=== PATIENT | female | born 1960 | race Caucasian/White ===

== ENCOUNTER 2017-10-05 15:50 | Emergency (ER) | payer BC ==
--- NOTE | 2017-10-05 16:20 | CPEKG ---
Heart Rate: 75 RR Interval: 800 P-R Interval: 152 QRSD Interval: 88 QT Interval: 416 QTC Interval: 465 P Thompson: 55 QRS Thompson: 36 T Wave Thompson: 52 EKG Severity - NORMAL ECG - EKG Impression: SINUS RHYTHM Electronically Signed By: Nela Bernard 06-Oct-2017 22:26:21
--- NOTE | 2017-10-05 17:14 | EDPHY ---
H & P Stated Complaint: chest pain for a few days, felt forgetfull today and could not type well Time Seen by Provider: 10/05/17 17:10 HPI/ROS: CHIEF COMPLAINT: Multiple complaints including chest pain and intermittent clumsiness of her left hand HISTORY OF PRESENT ILLNESS: The patient presents the ED with complaints of chronic chest pain for several months. Today she had some intermittent clumsiness of her left hand. She reports this is a chronic intermittent condition. She reports she was diagnosed with a old stroke on a MRI of her brain recently. She has been diagnosed with a small DVT in her upper extremity. The patient did see applicator sprayer who recommended that she consider anti-platelet agents. She is also under the care of a neurologist who has recommended anticoagulation. The patient did have an outpatient MRA of her neck which demonstrated no evidence of significant stenosis or dissection. The patient has a history of hospitalization for severe migraine headache. She was having a migraine headache earlier today. The patient denies any history of exertional chest pain. She denies fever, cough or congestion. She denies additional acute complaints. REVIEW OF SYSTEMS: A comprehensive 10 point review of systems is otherwise negative aside from elements mentioned in the history of present illness. Source: Patient - Personal History Current Tetanus Diphtheria and Acellular Pertussis (TDAP): Yes Tetanus Vaccine Date: 2012 - Medical/Surgical History Hx Asthma: Yes Hx Chronic Respiratory Disease: Yes Hx Diabetes: Yes Hx Cardiac Disease: No Hx Renal Disease: Yes Hx Cirrhosis: No Hx Alcoholism: No Hx HIV/AIDS: No Hx Splenectomy or Spleen Trauma: No Other PMH: pluerisy, asthma, bronchitis, pulmonary embolisms and DVT 2000. DM2. Kidney infection November 2015, cholectomy, Hysterectomy, sinus surgery, - Social History Smoking Status: Never smoked - Physical Exam Exam: General Appearance: Alert, no distress Eyes: Pupils equal and round no pallor or injection ENT, Mouth: Mucous membranes moist Respiratory: There are no retractions, lungs are clear to auscultation Cardiovascular: Regular rate and rhythm Gastrointestinal: Abdomen is soft and nontender, no masses, bowel sounds normal Neurological: A&O, normal motor function, normal sensory exam, normal cranial nerves, NIH stroke scale 0 Skin: Warm and dry, no rashes Musculoskeletal: Neck is supple nontender Extremities: symmetrical, full range of motion Constitutional: Initial Vital Signs Temperature (C) 36.6 C 10/05/17 15:54 Heart Rate 84 10/05/17 15:54 Respiratory Rate 16 10/05/17 15:54 Blood Pressure 105/87 H 10/05/17 15:54 O2 Sat (%) 99 10/05/17 15:54 O2 Delivery Mode Room Air Allergies/Adverse Reactions: cefixime [From Suprax] Allergy (Verified 10/05/17 15:52) cefuroxime Allergy (Verified 10/05/17 15:52) cephalexin monohydrate [From Keflex] Allergy (Verified 10/05/17 15:52) ciprofloxacin [From Cipro] Allergy (Verified 10/05/17 15:52) ciprofloxacin HCl [From Cipro] Allergy (Verified 10/05/17 15:52) demeclocycline HCl [From Declomycin] Allergy (Verified 10/05/17 15:52) dextromethorphan HBr [From NyQuil] Allergy (Verified 10/05/17 15:52) doxylamine succinate [From NyQuil] Allergy (Verified 10/05/17 15:52) erythromycin base Allergy (Verified 10/05/17 15:52) erythromycin lactobionate [From Erythrocin] Allergy (Verified 10/05/17 15:52) moxifloxacin [From Avelox] Allergy (Verified 10/05/17 15:53) moxifloxacin HCl [From Avelox] Allergy (Verified 10/05/17 15:52) nalidixic acid [From NegGram] Allergy (Verified 10/05/17 15:52) neomycin Allergy (Verified 10/05/17 15:52) nitrofurantoin [From Furadantin] Allergy (Verified 10/05/17 15:52) Penicillins Allergy (Verified 10/05/17 15:52) prednisone Allergy (Verified 10/05/17 15:52) pseudoephedrine HCl [From NyQuil] Allergy (Verified 10/05/17 15:52) Sulfa (Sulfonamide Antibiotics) Allergy (Verified 10/05/17 15:52) Tetracyclines Allergy (Verified 10/05/17 15:52) beclostatin Allergy (Uncoded 10/05/17 15:52) maxiquin Allergy (Uncoded 10/05/17 15:52) Home Medications: Medication Instructions Recorded Acyclovir 12/03/15 Albuterol 12/03/15 Atarax 12/03/15 CeleBREX 12/03/15 Cyclobenzaprine HCl 10 mg PO TID #20 tablet 12/03/15 Flexeril 12/03/15 Glipizide 12/03/15 Humalog 12/03/15 Lantus Solostar 12/03/15 Lisinopril 12/03/15 Metformin HCl ER 12/03/15 PRILOSEC 12/03/15 SIMVASTATIN 12/03/15 Synthroid 12/03/15 Victoza 3-Marquise 12/03/15 Wellbutrin 150mg XL 12/03/15 Xanax 12/03/15 ZYRTEC 12/03/15 Medical Decision Making - Diagnostics EKG Interpretation: EKG: Complete interpretation has been separately recorded in the [facility] archive. Summary impression: Sinus rhythm, rate 75 ED Course/Re-evaluation: ED course: I reviewed the patient's extensive past medical records in the [facility] system the patient has a history of chest pain from pericarditis. She recently had a hospitalization with a fairly extensive evaluation. She also has a history of intermittent clumsiness of her extremities and some word- finding difficulties. As I evaluate the patient she has no ischemic changes on her EKG. She has no complaints of new exertional chest pain or shortness of breath. She has a complicated neurologic history and does have a history of migraine headaches with intermittent clumsiness in her upper extremity. She has a history of a recent MRI which demonstrated no evidence of an acute stroke but evidence of an old infarct. She did have angiographic studies of her neck which demonstrated no stenosis or dissection. The patient is currently under the care of multiple specialists from Cardiology , Hematology and Neurology. She is wearing her treatment options for anti- platelet therapy verses anticoagulation verses no treatment. Her applicator sprayer not feel she needed anticoagulation for her DVT but did recommend anti-platelet agents. At this point time I see no evidence for hospitalization. The patient has had recent risk stratification for TIA. She is considering her medical therapy options. Differential Diagnosis: Differential diagnosis considered includes stroke, TIA, atypical migraine Departure - Departure Disposition: Home, Routine, Self-Care Clinical Impression: Clumsiness, Pericarditis Condition: Good Instructions: Chronic Pericarditis (ED) Additional Instructions: 1. I recommend following up with your primary care provider and neurologist to discuss whether aspirin, anti-platelet drugs or anticoagulants are indicated. 2. Please return to the ED for markedly worsening neurologic symptoms or other concerns. 3. Follow up with Cardiology as scheduled. Referrals: REGINALDO MONTEJO [Other] - As per Instructions
[2017-10-05 17:38] VITALS: BP 106/62
== END 2017-10-05 17:38 | disposition home or self-care (01) ==
DX: F82 Specific developmental disorder of motor function (principal); I31.9 Disease of pericardium, unspecified; J45.909 Unspecified asthma, uncomplicated; E11.9 Type 2 diabetes mellitus without complications; Z79.84 Long term (current) use of oral hypoglycemic drugs